=== PATIENT | female | born 1990 | race Caucasian/White ===

== ENCOUNTER 2023-02-18 14:30 | Emergency (ER) | payer BC ==
[2023-02-18 14:57] VITALS: BP 116/36; PULSE 58; RESP 18; TEMP 98.3; BMI 22.6
== END 2023-02-18 16:08 | disposition home or self-care (01) ==
LOC: FER 14:30
DX: R55 Syncope and collapse (principal); R42 Dizziness and giddiness; R61 Generalized hyperhidrosis
CPT/HCPCS: 84703; 93005; 99284-25